=== PATIENT | male | born 1940 ===

== ENCOUNTER 2023-12-18 08:15 | Inpatient (IN) | payer OTHER ==
[~2023-12-18] VITALS: Ht 175.3 cm; Wt 93.9 kg
[2023-12-19 08:23] LABS: INR 1.04; PARTIAL THROMBOPLASTIN TIME 27.3 SECONDS (22.0-34.0); PROTHROMBIN TIME 10.9 SECONDS (9.0-11.5)
[2023-12-19] MEDS ORDERED: PLAVIX75 MG PO (08:55)
[2023-12-19] MEDS ORDERED: FINASTERIDE5 MG PO (08:55)
[2023-12-19] MEDS ORDERED: ZETIA10 MG PO (08:55)
[2023-12-19] MEDS ORDERED: GABAPENTIN100 MG (08:56)
[2023-12-19] MEDS ORDERED: TAMS0.4C PO (08:56)
[2023-12-19] MEDS ORDERED: METFORMIN HCL1000 M2 PO (08:56)
[2023-12-19] MEDS ORDERED: AMLODIPINE BESY10 MG PO (08:57)
[2023-12-19] MEDS ORDERED: COZAAR100 MG PO (08:57)
[2023-12-19] MEDS ORDERED: HYDRODIURIL12.5 MG PO (08:58)
[2023-12-19] MEDS ORDERED: ARICEPT5 MG PO (08:58)
[2023-12-25] MEDS ORDERED: CEFAZOLIN SODIUM 1,000 MG VIAL ONE (07:40)
[2023-12-25] MEDS ORDERED: TRANEXAMIC ACID 100MG/1ML (1000MG) AMPUL IV ONE (07:44)
[2023-12-25] MEDS ORDERED: KETOROLAC TROMETHAMINE 60 MG VIAL IM ONE (10:24)
[2023-12-25] MEDS ORDERED: OxyCODONE HCL 5 MG TABLET (ROXICODONE) PO PRN (11:15)
[2023-12-25] MEDS ORDERED: SODIUM CHLORIDE 0.45 % 1,000 ML IV SCH (11:15)
[2023-12-25] MEDS ORDERED: ONDANSETRON HCL 2 MG/ML VIAL IV PRN (11:15)
[2023-12-25] MEDS ORDERED: MORPHINE SULFATE 4 MG/ML CARTRIDGE IV PRN (11:15)
[2023-12-25] MEDS ORDERED: ACETAMINOPHEN 500 MG GEL..CAP PO SCH (12:00)
[2023-12-25] MEDS ORDERED: DEXTROSE 50 % IN WATER 0.5 G/ML DISP.SYRIN IV PRN ×2 (15:30→19:15)
[2023-12-25] MEDS ORDERED: INSULIN LISPRO 1,000 UNIT/10 ML UNITS SUBCUTANEO PRN ×2 (15:30→19:15)
[2023-12-25] MEDS ORDERED: CEFAZOLIN SODIUM 1,000 MG VIAL IV SCH (17:00)
[2023-12-25] MEDS ORDERED: GABAPENTIN 300 MG CAPSULE PO SCH (17:00)
[2023-12-25] MEDS ORDERED: DONEPEZIL HCL 5 MG TABLET PO SCH (19:05)
[2023-12-25] MEDS ORDERED: TAMSULOSIN HCL 0.4 MG CAP PO SCH (21:00)
[2023-12-26 05:06] LABS: HEMATOCRIT 35.6 % (39.0-48.0); HEMOGLOBIN 12.1 g/dL (13-16.00); MEAN CELL VOLUME 88.9 fL (80.0-100.00); MEAN CORPUSCULAR HEMOGLOBIN 30.3 pg (27.00-32.0); MEAN CORPUSCULAR HGB CONC 34.1 g/dl (32.0-36.0); PLATELET COUNT 236 K/uL (150-450); RED BLOOD COUNT 4.01 M/uL (4.00-6.00); RED CELL DISTRIBUTION WIDTH 14.4 % (11.5-14.5)
[2023-12-26] MEDS ORDERED: DUI500 PO (07:57)
[2023-12-26] MEDS ORDERED: PERCOCET 5-3251 EACH PO (07:57)
[2023-12-26] MEDS ORDERED: ELIQUIS2.5 MG PO (07:57)
[2023-12-26] MEDS ORDERED: LOSARTAN POTASSIUM 100 MG TABLET PO SCH (09:00)
[2023-12-26] MEDS ORDERED: HYDROCHLOROTHIAZIDE 12.5 MG CAPSULE PO SCH (09:00)
[2023-12-26] MEDS ORDERED: APIXABAN 2.5 MG TABLET PO SCH (09:00)
[2023-12-26] MEDS ORDERED: SENNOSIDES 1 TAB TABLET PO SCH (09:00)
[2023-12-26] MEDS ORDERED: FINASTERIDE 5 MG TABLET PO SCH (09:00)
[2023-12-26] MEDS ORDERED: VITAMIN B COMPLEX 1 EACH PO SCH (12:54)
[2023-12-26] MEDS ORDERED: Cyanocobalamin/Mecobalamin 1 TAB.SL SL SCH (12:54)
[2023-12-26] MEDS ORDERED: SOD FERRIC GLUC COMPLX/SUCROSE 62.5 MG/5 ML AMPUL IV SCH (12:54)
[2023-12-27 05:57] LABS: HEMATOCRIT 33.3 % (39.0-48.0); HEMOGLOBIN 11.5 g/dL (13-16.00); MEAN CELL VOLUME 89.2 fL (80.0-100.00); MEAN CORPUSCULAR HEMOGLOBIN 30.9 pg (27.00-32.0); MEAN CORPUSCULAR HGB CONC 34.6 g/dl (32.0-36.0); PLATELET COUNT 214 K/uL (150-450); RED BLOOD COUNT 3.73 M/uL (4.00-6.00); RED CELL DISTRIBUTION WIDTH 14.7 % (11.5-14.5)
[2023-12-27] MEDS ORDERED: IRON FUM,PS/FOLIC ACID/VITC/B3 1 CAP CAPSULE PO SCH ×2 (09:00)
== END 2023-12-27 21:12 | DRG 470 ==
LOC: O/R 12-25 06:17 → SURH 12-25 08:15 → SURG 12-25 11:50 → O/R 12-25 11:51 → SURG 12-25 13:28 → SURH 12-25 14:30 → SURG 12-27 21:12
PROVIDERS: ADMIT Orthopaedic Surgery; ATTEND Orthopaedic Surgery
PROC: 0MBM0ZZ Excision of Left Hip Bursa and Ligament, Open Approach (ICD-10-PCS; 2023-12-25)
PROC: 0SRB0JA Replacement of Left Hip Joint with Synthetic Substitute, Uncemented, Open Approach (ICD-10-PCS; principal; 2023-12-25 14:30)
DX: M16.12 Unilateral primary osteoarthritis, left hip (principal); D62 Acute posthemorrhagic anemia; I10 Essential (primary) hypertension; I25.10 Atherosclerotic heart disease of native coronary artery without angina pectoris; I11.9 Hypertensive heart disease without heart failure; G30.9 Alzheimer's disease, unspecified; F02.80 Dementia in other diseases classified elsewhere, unspecified severity, without behavioral disturbance, psychotic disturbance, mood disturbance, and anxiety; G47.33 Obstructive sleep apnea (adult) (pediatric)

== ENCOUNTER 2024-12-09 06:00 | Outpatient (CLI) | payer OTHER ==
[~2024-12-09] VITALS: Ht 274.3 cm; Wt 5.0 kg
[~2024-12-09 06:00] MED LIST: AMLODIPINE BESY10 MG PO; ARICEPT5 MG PO; COZAAR100 MG PO; DUI500 PO; ELIQUIS2.5 MG PO; FINASTERIDE5 MG PO; GABAPENTIN100 MG; HYDRODIURIL12.5 MG PO; METFORMIN HCL1000 M2 PO; PERCOCET 5-3251 EACH PO; PLAVIX75 MG PO; TAMS0.4C PO; ZETIA10 MG PO
[2024-12-09 12:23] VITALS: BP 151/79
[2024-12-09] MEDS ORDERED: TAMS0.4C PO (12:32)
[2024-12-09] MEDS ORDERED: JARDIANCE25 MG PO (12:33)
[2024-12-09] MEDS ORDERED: [UNRECOGNIZED DRUG - OTHER] (12:33)
[2024-12-09] MEDS ORDERED: TRULICITY0.75 MG/0. (12:34)
[2024-12-09] MEDS ORDERED: ARICEPT5 MG PO (12:34)
[2024-12-09] MEDS ORDERED: AMLODIPINE-OLM1 EAC2 (12:34)
== END 2024-12-09 06:01 | disposition home or self-care (01) ==
LOC: RAD 06:00 → SURH 12-16 07:00 → EDSTATUS 12-16 09:45 → SURH 12-16 20:15
PROVIDERS: ATTEND Orthopaedic Surgery
DX: D68.9 Coagulation defect, unspecified (principal); Z03.818 Encounter for observation for suspected exposure to other biological agents ruled out; Z20.828 Contact with and (suspected) exposure to other viral communicable diseases; M16.11 Unilateral primary osteoarthritis, right hip